=== PATIENT | male | born 1955 | race Caucasian/White ===

== ENCOUNTER 2022-03-24 06:08 | Day surgery (SDC) | payer MEDICARE, SELFPAY ==
[2022-03-24] VITALS (13 sets, daily range): BP systolic 126–167; BP diastolic 76–101; PULSE 66–75; RESP 16; TEMP 36.1–36.9; O2SAT 89–97; BMI 30.6
--- NOTE | 2022-03-24 06:50 | SUR.PREOP ---
Patient provided home covid negative results to RN.
[2022-03-24] MEDS: SODIUM CHLORIDE 0.9 % (FLUSH) 10 ML SYRINGE IVF (06:51)
[2022-03-24] MEDS: LACTATED RINGERS 1000 ML 1,000 ML 100 ML IV ×2 (06:51→09:04)
[2022-03-24] MEDS: CEFAZOLIN 2 GM INJ IVP (07:41)
[2022-03-24] MEDS: BUPIVACAINE 0.25% 30 ML INJECTION (08:29)
--- NOTE | 2022-03-24 08:51 | PM.GSPRC ---
Operative Note Date of procedure: 03/24/22 Pre-op diagnosis: Left inguinal hernia Post-op diagnosis: Same Type of Procedure: Laparoscopic left inguinal hernia repair with mesh Indications: The patient is a 66-year-old male with a left inguinal hernia. He has noticed it for the past year but since it has become, he sought evaluation for repair. After discussion of options he agreed to proceed with repair. Procedure Description: After discussing the risks and benefits of the procedure, the patient signed informed consent.? The operative site was marked and the patient was brought to the operating room and placed on the operating table in supine position.? Care was taken to pad the patient's pressure points.?? The patient was then intubated by anesthesia.?? The operative site was then prepped and draped in the usual sterile fashion.? A time-out was then performed. A curvilinear incision was made below the umbilicus. Dissection was carried down to subcutaneous tissue until the anterior rectus fascia was encountered. This was incised off the midline on the left. The rectus muscle fibers were then retracted exposing the posterior fascia. A port with a dissecting balloon was then introduced into the pre-preperitoneal space. This was inflated under direct vision. The balloon was deflated, removed, and a 10 mm working port was placed. The space was insuflated and a 10 mm 30-degree scope was then advanced into the space. Two 5 mm ports were placed in the midline under direct vision. Dissection began on the left side. Roel's ligament and the pubic bone was exposed medially. Following this, dissection was carried out laterally. A direct defect was noted. This was reduced. The cord structures were identified. There was no large cord lipoma or hernia noted. The peritoneum was dissected down from the cord structures. Dissection was taken out laterally to create a pocket for the mesh. Once the dissection was complete, a piece of large Bard 3DMax mesh for the appropriate side was placed into the abdomen. This was positioned with the marker pointed medially. A Tacker was used to attach the mesh medially at Roel's ligament and 1 tack laterally with care to avoid the epigastric vessels and stay above the inguinal ligament. I also placed 1 tack on the superior medial aspect of the mesh given the fact that the patient has a direct hernia Once this was completed the preperitoneal space desufflated under direct vision. The ports were removed. The fascia from the infraumbilical port was closed with 0 Vicryl. The skin incisions were closed with absorbable subcuticular suture. Sterile dressings were then applied. The scrotum was examined to ensure that both testicles were down. Instrument sponge and needle counts were correct at the end of the case. ? The patient was then woken and transported to the recovery area in stable condition. ? The patient tolerated the procedure well. Findings: Direct left inguinal hernia Implants: Bard 3D max mesh Anesthesia: GETA Surgeon: Maru Moreno MD Estimated blood loss (mL): 5 Additional Specimen Information: None Condition: stable Disposition: PACU
--- NOTE | 2022-03-24 08:54 | W.ANESCHARGE ---
Anesthesia Charges Start Date/Time Anesthesia Start Date: 03/24/22 Anesthesia Start Time: 07:34 Stop Date/Time Anesthesia Stop Date: 03/24/22 Anesthesia Stop Time: 08:52
--- NOTE | 2022-03-24 09:49 | W.ANESCHARGE ---
Anesthesia Charges Start Date/Time Anesthesia Start Date: 03/24/22 Anesthesia Start Time: 07:34 Stop Date/Time Anesthesia Stop Date: 03/24/22 Anesthesia Stop Time: 08:52
== END 2022-03-24 10:43 | disposition home or self-care (01) ==
PROVIDERS: PCP Family Medicine; Visit Provider Surgery
PROC: (CPT 49650; principal; 2022-03-24 07:30)
DX: K40.90 Unilateral inguinal hernia, without obstruction or gangrene, not specified as recurrent (principal)
CPT/HCPCS: 49650; 830; 860; C1781; J0330; J0690; J2250; J2370; J2405; J2704; J2710; J3010; J3490; J7120